=== PATIENT | male | born 1970 | race Caucasian/White ===

== ENCOUNTER 2017-02-27 18:24 | Emergency (ER) | payer SELFPAY ==
--- NOTE | 2017-02-27 18:51 | ED Physician Documentation ---
General Adult - HISTORIAN Historian: patient - HPI Stated Complaint: R sided rib pain Chief Complaint: Chest Pain (right chest wall) Additional Information: Patient was working today and while standing on the top of a six-foot ladder the ladder gave way. Patient subsequently fell on the ground on the right side with his arm between his ribs. Patient has some immediate right lateral rib cage pain. Patient states the pain has been worse with deep breathing and coughing or sneezing. Patient states he does feel like phlegm is getting caught in his throat at times. Patient has had previous right rib fractures. Patient denies any ecchymosis that he is aware. Onset: hours (7 hours ago) Timing: still present, worse Severity: severe Modifying Factors: worse with coughing, sneezing or movement Context: fell off ofma 6 foot ladder - ROS CONST: denies: fever, chills - PAST HX Past History: none Other History: none Surgeries/Procedures: other (right rib fractures) Allergies/Adverse Reactions: Allergies Allergy/AdvReac Type Severity Reaction Status Date / Time acetaminophen Allergy Verified 02/27/17 18:38 [From Darvocet-N] propoxyphene napsylate Allergy Verified 02/27/17 18:38 [From Darvocet-N] Home Medications: Ambulatory Orders Medication Instructions Recorded HYDROcodone /APAP 5/325 [[place] 1 each PO Q4 PRN #30 tablet 02/27/17 5/325] - SOCIAL HX Smoking History: greater than 1 pack/day (1 1/2 ppd) Alcohol Use: occasionally Drug Use: none - FAMILY HX Family History: No - VITAL SIGNS Vital Signs: Vital Signs Temp Pulse Resp BP Pulse Ox 98.4 F 77 20 128/90 95 02/27/17 18:26 02/27/17 18:26 02/27/17 18:26 02/27/17 18:26 02/27/17 18:26 - REVIEWED ASSESSMENTS Nursing Assessment Reviewed: Yes Vitals Reviewed: Yes ED Results Lab/Radiology - Radiology Radiology Impressions: Pa and lateral chest Clinical history : Chest pain Technique pa and lateral upright Findings: The lung petty are clear. I see no hilar or mediastinal mass. There is no pleural effusion or lesion of the bony thorax. Impression: No acute pulmonary disease Right ribs Clinical history pain Technique AP oblique cone down Findings: There is a right 7th rib fracture.. A right 8th rib fractures present. Bone density is normal. Probable old fractures are present in the anterior 9th and 10th ribs. Impression: Suspect acute 7th and 8th rib fractures old healed fractures anterior right 9th and 10th ribs General Adult Physical Exam - PHYSICAL EXAM GENERAL APPEARANCE: moderate distress EENT: ENT inspection normal, pharynx normal, no signs of dehydration. No: dry mucous membranes NECK: normal inspection, thyroid normal, supple. No: lymphadenopathy, stiff neck RESPIRATORY: breath sounds normal, other (tenderness to palpation over the mid to lower right lateral rib cage area. No ecchymosis or crepitus could be appreciated., No bony abnormalities noted. Patient does have tenderness to palpation over the seventh rib.). No: wheezes, rales, rhonchi CVS: reg rate & rhythm, heart sounds normal, equal pulses, no murmur, no gallop ABDOMEN: soft, no organomegaly, normal bowel sounds BACK: normal inspection SKIN: warm/dry, normal color NEURO: oriented X3, CN's nml as tested, motor nml, sensation nml, mood/affect nml, cognition normal Discharge Clincal Impression: Rib fractures Qualifiers: Encounter type: initial encounter Rib fracture type: multiple ribs Fracture type: closed Laterality: right Qualified Code(s): S22.41XA - Multiple fractures of ribs, right side, initial encounter for closed fracture Prescriptions: HYDROcodone /APAP 5/325 [[place] 5/325] 1 each PO Q4 PRN #30 tablet PRN Reason: Pain Referrals: Cho,DO Mark [STAFF PHYSICIAN] - 2 Days Additional Instructions: Take Aleve 2 tablets with food on a regular basis. Take hydrocodone as a supplement pain medication. Splint chest when you have to cough/sneeze. Take some deep breaths every hour while awake. Try to decrease smoking. Watch for possible developing pneumonia. Activity as tolerated. Condition: Stable Disposition: 01 HOME, SELF-CARE Decision to Admit: NO Date of Decison to Admit: 02/27/17 Decision Time: 19:43
[2017-02-27] MEDS ORDERED: fentaNYL CITRATE/PF 100 MCG/ 2ML AMP IM ONE (18:54)
--- NOTE | 2017-02-27 19:24 | Diagnostic Imaging Report ---
[facility] [address] [facility] [address] Report Submission Date: Feb 27, 2017 7:23:30 PM MAPPING PILOT Patient Study Name: LOLLY APONTE Date: Feb 27, 2017 7:08:30 PM MAPPING PILOT Modality Type: CR Gender: M Description: CHEST : 68 Institution: [facility] Physician: SACHIN ZARATE Pa and lateral chest Clinical history : Chest pain Technique pa and lateral upright Findings: The lung petty are clear. I see no hilar or mediastinal mass. There is no pleural effusion or lesion of the bony thorax. Impression: No acute pulmonary disease Electronically signed on Feb 27, 2017 7:23:30 PM MAPPING PILOT by: Omar FUCHS
--- NOTE | 2017-02-27 19:26 | Diagnostic Imaging Report ---
[facility] [address] [facility] [address] [address] Report Submission Date: Feb 27, 2017 7:25:39 PM GROUP ACTIVITIES AIDE Patient Study Name: LOLLY APONTE Date: Feb 27, 2017 7:11:21 PM GROUP ACTIVITIES AIDE Modality Type: CR Gender: M Description: CHEST : 68 Institution: [facility] Physician: SACHIN ZARATE Right ribs Clinical history pain Technique AP oblique cone down Findings: There is a right 7th rib fracture.. A right 8th rib fractures present. Bone density is normal. Probable old fractures are present in the anterior 9th and 10th ribs. Impression: Suspect acute 7th and 8th rib fractures old healed fractures anterior right 9th and 10th ribs Electronically signed on Feb 27, 2017 7:25:39 PM GROUP ACTIVITIES AIDE by: Omar FUCHS
[2017-02-27 20:19] VITALS: BP 132/92
== END 2017-02-27 20:05 | disposition home or self-care (01) ==
LOC: ED 18:24
DX: S22.41XA Multiple fractures of ribs, right side, initial encounter for closed fracture (principal); X58.XXXA Exposure to other specified factors, initial encounter; Y93.9 Activity, unspecified; Y99.9 Unspecified external cause status
CPT/HCPCS: 71020; 71100; J3010; 96372; 99283

== ENCOUNTER 2018-10-19 17:32 | Emergency (ER) | payer SELFPAY ==
--- NOTE | 2018-10-19 17:49 | ED Physician Documentation ---
General Adult - HISTORIAN Historian: patient - HPI Stated Complaint: tick bite and now fever Chief Complaint: Fever Onset: days ago (14) Timing: still present Severity: mild Further Comments: yes (he states a week ago or more he noticed a tick bite and he had no residual area from the tick. No redness no other skin concern although he has had a fever x 2 weeks and he has had lyme's disease. He denies any other complaints other than mild headache.) - ROS CONST: fever EYES/ENT: none CVS/RESP: none GI/: none MS/SKIN/LYMPH: denies: rash NEURO/PSYCH: headache - PAST HX Past History: COPD Immunizations: UTD Allergies/Adverse Reactions: Allergies Allergy/AdvReac Type Severity Reaction Status Date / Time propoxyphene napsylate Allergy Verified 10/19/18 17:47 [From Darvocet-N] acetaminophen [From Vicodin] AdvReac Vomiting Verified 10/19/18 17:48 hydrocodone [From Vicodin] AdvReac Vomiting Verified 10/19/18 17:48 - SOCIAL HX Smoking History: cigarettes Alcohol Use: none Drug Use: none - FAMILY HX Family History: No - VITAL SIGNS Vital Signs: Vital Signs Temp Pulse Resp BP Pulse Ox 132/92 02/27/17 20:05 - REVIEWED ASSESSMENTS Nursing Assessment Reviewed: Yes Vitals Reviewed: Yes Progress - Progress Progress: 1840: Discussed results and plan . He is agreeable DG ED Results Lab/Radiology - Radiology Radiology Impressions: Chest two views History: Fever and chills after tick bite 2 weeks ago Findings: The lungs are hyperinflated without pneumonia, pleural effusion, or pneumothorax. Heart size and pulmonary vascularity are normal. Impression: COPD. Electronically signed on Oct 19, 2018 6:36:35 PM CDT by: Hemant Singh General Adult Physical Exam - PHYSICAL EXAM GENERAL APPEARANCE: no distress EENT: eye inspection normal, ENT inspection normal, pharynx normal, no signs of dehydration NECK: normal inspection RESPIRATORY: no resp distress, chest non-tender, wheezes CVS: reg rate & rhythm, heart sounds normal, equal pulses ABDOMEN: soft, normal bowel sounds, non-tender BACK: normal inspection SKIN: warm/dry, normal color EXTREMITIES: non-tender, normal range of motion, no evidence of injury, no edema NEURO: oriented X3 Discharge Clincal Impression: Fever Qualifiers: Fever type: unspecified Qualified Code(s): R50.9 - Fever, unspecified Referrals: Primary Doctor,No [Primary Care Provider] - 2 Days Comments: 1. Doxycycline 100 mg take 1 by mouth every 12 hours x 10 days 2. OTC meds as directed as needed for symptom relief 3. Increase fluids 4. Follow up with PCP in 2 days for COPD dx 5. STOP SMOKING 6. Return to ER for any increasing concerns Condition: Stable Decision to Admit: NO Date of Decison to Admit: 10/19/18 Decision Time: 18:45
[2018-10-19 17:56] VITALS: BP 137/82
[2018-10-19 18:12] LABS: BASOPHILS % 0.5 % (0.0-1.5); NEUTROPHILS # 3.8 # k/uL (1.4-7.7)
[2018-10-19 18:27] LABS: eGFR (Non-African) > 60
--- NOTE | 2018-10-19 18:39 | Diagnostic Imaging Report ---
MEHRAN SINGH [facility] [address] [facility] [address] [place], [place]. [address] Report Submission Date: Oct 19, 2018 6:36:35 PM CDT Patient Study Name: LUIS A APONTE Date: Oct 19, 2018 6:12:46 PM CDT Modality Type: DX Gender: M Description: CHEST 2VIEW : 68 Institution: [facility] Physician: MEHRAN SINGH Chest two views History: Fever and chills after tick bite 2 weeks ago Findings: The lungs are hyperinflated without pneumonia, pleural effusion, or pneumothorax. Heart size and pulmonary vascularity are normal. Impression: COPD. Electronically signed on Oct 19, 2018 6:36:35 PM CDT by: Hemant FUCHS
[2018-10-19] MEDS ORDERED: DOXYCYCLINE 100 MG CAPSULE PO ONE (18:45)
== END 2018-10-19 18:56 ==
LOC: ED 17:32
DX: R50.9 Fever, unspecified (principal)
CPT/HCPCS: 36415; 71046; 80053; 85025; 86618; 86666; 86757; 99283

== ENCOUNTER 2019-01-24 07:37 | Emergency (ER) | payer SELFPAY ==
--- NOTE | 2019-01-24 08:02 | ED Physician Documentation ---
Fall - HISTORIAN Historian: patient - HPI Stated Complaint: low back pain after fall Chief Complaint: Fall Additional Information: Patient presents to ED with low back pain after falling off a 9 foot wall on Sunday. Patient reports he was unconscious for approximately 1 minute after the fall. He did not seek medical attention. Patient has been experiencing worsening lower back pain since fall. He denies nausea/vomiting, visual changes, dizziness or syncope. He also denies loss of bowel or bladder control. Patient is refusing CT head, CT c spine and CT lspine. He is willing to do plain xray. Where: work Context: slipped r: severe Associated Symptoms:: positive LOC, prolonged (minutes) Location of Pain/Injury: lower back Injury to Right Extremity: none Injury to Left Extremity: none - ROS CONST: no problems NEURO: denies: dizziness MS/SKIN/LYMPH: back pain. denies: weakness, numbness EYES/ENT: none CVS/RESP: denies: chest pain, shortness of breath GI/: denies: nausea, vomiting - PAST HX Past History: none Allergies/Adverse Reactions: Allergies Allergy/AdvReac Type Severity Reaction Status Date / Time propoxyphene napsylate Allergy Verified 01/24/19 08:19 [From Darvocet-N] acetaminophen [From Vicodin] AdvReac Vomiting Verified 01/24/19 08:19 hydrocodone [From Vicodin] AdvReac Vomiting Verified 01/24/19 08:19 Home Medications: Ambulatory Orders Medication Instructions Recorded Ibuprofen 600 mg PO Q6 01/24/19 Ketorolac Tromethamine [Toradol] 10 mg PO Q6H PRN #20 tablet 01/24/19 - SOCIAL HX Smoking History: non-smoker Alcohol Use: none Drug Use: none - FAMILY HX Family History: none - VITAL SIGNS Vital Signs: Vital Signs Temp Pulse Resp BP Pulse Ox 137/82 10/19/18 18:56 - REVIEWED ASSESSMENTS Nursing Assessment Reviewed: Yes Vitals Reviewed: Yes ED Results Lab/Radiology - Radiology Radiology Impressions: Report Submission Date: Jan 24, 2019 9:05:18 AM SEAMLESS TUBE DRAWER Patient Study Name: LUIS A APONTE Date: Jan 24, 2019 7:59:31 AM SEAMLESS TUBE DRAWER Modality Type: DX Gender: M Description: L SPINE 4 VIEWS : 68 Institution: [facility] Physician: HOLLIS BALES Exam:? Lumbar spine 5 views Indication: ORDER STATES: FALL, LOW BACK PAIN PT STATES: FALL ON SUNDAY WITH LOW BACK PAIN NO PRIOR STUDY FOR COMPARISON (Hx) / Note time : 01/24/2019 8:30:21 AM User : Koki Hernandez ORDER STATES: FALL, LOW BACK PAIN PT STATES: FALL ON SUNDAY WITH LOW BACK PAIN NO PRIOR STUDY FOR COMPARISON (DICOM Hx) (DICOM Hx) ? Findings:? Left L1, L2, L3 transverse process fractures. No vertebral fracture. Impression: Left L1, L2, L3 transverse process fractures Electronically signed on Jan 24, 2019 9:05:18 AM SEAMLESS TUBE DRAWER by: Mark De La Garza Physical Exam - Physical Exam General Appearance: no acute distress, alert Head: non-tender, no swelling, no obvious injury Neck: non-tender, painless ROM Eye: ROBERT, EOMI ENT: no dental injury, no oral injury Resp/CVS: chest non-tender, breath sounds nml, no resp. distress Abdomen: soft, normal bowel sounds Neuro: oriented x3, sensation nml, motor nml, mood/affect nml Skin: color nml, no rash Back: vertebral tenderness (L5, with swelling/ 2 cm fluid collection) Extremities: atraumatic, pelvis stable, hips non-tender, nml ROM Joint: nml ROM, Nml gait/weight bearing - Trm[place] Coma Score Eyes Open: Spontaneous Speech: Oriented Motor: Obeys Commands Discharge Clincal Impression: Lumbar transverse process fracture Qualifiers: Encounter type: initial encounter Fracture type: closed Qualified Code(s): S32.009A - Unspecified fracture of unspecified lumbar vertebra, initial encounter for closed fracture Fracture of spinous process of lumbar vertebra Qualifiers: Encounter type: initial encounter Fracture type: closed Qualified Code(s): S32.009A - Unspecified fracture of unspecified lumbar vertebra, initial encounte r for closed fracture Prescriptions: Ketorolac Tromethamine [Toradol] 10 mg PO Q6H PRN #20 tablet PRN Reason: back pain Referrals: Primary Doctor,No [Primary Care Provider] - 2 Days Additional Instructions: 1. Toradol every 6 hours as needed for pain. 2. Add Prilosec or Nexium daily while taking Toradol to prevent stomach upset 3. Apply Ice and/or Heat to affected areas as needed for pain 4. Follow up with PCP within 1 week 5. Return to ER for new or worsening symptoms Condition: Stable Disposition: 01 HOME, SELF-CARE Decision to Admit: NO Date of Decison to Admit: 01/24/19 Decision Time: 09:26
[2019-01-24] MEDS ORDERED: KETOROLAC TROMETHAMINE 60 MG/2 ML VIAL IM ONE (08:55)
--- NOTE | 2019-01-24 09:09 | Diagnostic Imaging Report ---
PATIENT MR#: [id number] PATIENT PATIENT NAME: LUIS A APONTE DATE OF : 1970 REFERRING PHYSICIAN: Lizett Hill EXAM DATE: 01/24/2019 ACCESSION NUMBER: [id number] EXAM DESCRIPTION: L SPINE 4 VIEWS Exam: Lumbar spine 5 views Indication: ORDER STATES: FALL, LOW BACK PAIN PT STATES: FALL ON SUNDAY WITH LOW BACK PAIN NO PRIOR STUDY FOR COMPARISON (Hx) / Note time : 01/24/2019 8:30:21 A M User : Koki Hernandez ORDER STATES: FALL, LOW BACK PAIN PT STATES: FALL ON SUNDAY WITH LOW BACK PAIN NO PRIOR STUD Y FOR COMPARISON (DICOM Hx) (DICOM Hx) Findings: Left L1, L2, L3 transverse process fractures. No vertebral fracture. Impression: Left L1, L2, L3 transverse process fractures Read by: Dr. Mark Wheatley Transcribed by: Transcribed Date: Electronically signed by: Dr. Mark Wheatley Date signed: 01/24/2019 9:09:04 AM
[2019-01-24 09:43] VITALS: BP 120/84
== END 2019-01-24 09:43 | disposition home or self-care (01) ==
LOC: ED 07:37
DX: S32.009A Unspecified fracture of unspecified lumbar vertebra, initial encounter for closed fracture (principal); W01.0XXA Fall on same level from slipping, tripping and stumbling without subsequent striking against object, initial encounter; Y99.0 Civilian activity done for income or pay
CPT/HCPCS: 72110; 96372; 99284; J1885